=== PATIENT | male | born 1995 | race African-American/Black ===

== ENCOUNTER 2016-09-09 22:49 | Emergency (ER) | payer SELFPAY ==
--- NOTE | ~2016-09-09 | CR63 ---
[facility] A Service of [facility] RADIOLOGY TEXT RESULTS PATIENT: DENNIS REES LOCATION: CFTX : 95 UNIT #: [id number] AGE: [address]: Mario Lopez SEX: M ORDER DR: [id number] [facility] [address] [place], [place] [address] [id number] MR#: [id number] Acc #: [id number] NAME: DENNIS REES : 1995 SEX: M STUDY DATE/TIME: 09/09/2016 21:36 UNIT: [facility] ROOM: STUDY DESCRIPTION: CR Chest 2 View Attending Physician: Mario Lopez P.A.-C. Ordering Physician: Mario Lopez P.A.-C. Primary Care Physician: Primary Care Physician No MEDICAL IMAGING REPORT This report is preliminary unless electronic signature is present EXAM Chest PA and lateral, 09/09/2016 HISTORY Cough, shortness of breath, chest tightness for 1 week. FINDINGS PA and lateral examination of the chest upright shows a good expansion of the parenchyma with a normal distribution of the pulmonary vascularity. There is no indication of congestion, effusion, infiltrate, tumor, or nodular density. The pleural reflections and diaphragmatic contours are normal. The cardiac silhouette and mediastinal anatomy is within normal limits. IMPRESSION Normal chest. Dictated by... Ac Gracia M.D. THIS IS AN ELECTRONICALLY VERIFIED REPORT Ac Gracia M.D. at 09/10/2016 3:40 PM AMILCAR/nata TD: 09/10/2016 04:39 JOB #: [id number] MEDICAL IMAGING REPORT Page 1 of 1 COPY
== END 2016-09-09 22:54 | disposition home or self-care (01) ==
LOC: CFTX 22:49
DX: J45.909 Unspecified asthma, uncomplicated (principal)
CPT/HCPCS: 71020; 94640; 99283